=== PATIENT | male | born 1955 | race Caucasian/White ===

== ENCOUNTER → 2017-08-10 15:23 | Outpatient (CLI) | payer MEDICAID ==
[~2017-08-10 15:23] MED LIST: COZAAR100 MG PO; KEFLEX500 MG PO; Levaquin PO; OXYCODONE HCL5 MG PO; PREDNISONE20 MG PO; SINGULAIR10 MG PO; ZOFRAN ODT4 MG/UDTAB PO
[2017-10-05 16:08] VITALS: BMI 35.2
== END | disposition home or self-care (01) ==
LOC: D.MRI 15:23
DX: M54.12 Radiculopathy, cervical region (principal); M25.311 Other instability, right shoulder

== ENCOUNTER → 2017-08-13 08:47 | Outpatient (CLI) | payer MEDICAID ==
[2017-10-05 16:08] VITALS: BMI 35.2
== END | disposition home or self-care (01) ==
LOC: D.RAD 08:47
DX: M25.311 Other instability, right shoulder (principal); M54.12 Radiculopathy, cervical region

== ENCOUNTER → 2017-08-16 09:50 | Outpatient (CLI) | payer MEDICAID ==
[2017-10-05 16:08] VITALS: BMI 35.2
== END | disposition home or self-care (01) ==
LOC: D.LABREF 09:50
DX: M19.011 Primary osteoarthritis, right shoulder (principal); Z11.8 Encounter for screening for other infectious and parasitic diseases

== ENCOUNTER 2017-09-18 05:16 | Inpatient (IN) | payer MEDICAID ==
[2017-09-14 09:17] LABS: BASOPHILS 0.5 % (0-2); EOSINOPHILS 2.4 % (0-7); HEMATOCRIT 54.7 % (42.0-54.0); HEMOGLOBIN 18.6 g/dL (13.5-17.5); IMMATURE GRANULOCYTES 0.3 % (0-5); LYMPHOCYTES 33.2 % (15-50); MCH 33.3 pg (26.0-34.0); MCV 97.9 fL (80.0-100.0); MONOCYTES 9.9 % (2-11); NEUTROPHILS 53.7 % (40-80); PLATELET COUNT 232 10x3/uL (130-400); RBC 5.59 10x6/uL (4.20-6.10); RDW 13.1 % (11.5-14.5); WBC 11.7 10x3/uL (4.8-10.8)
[2017-09-14 09:36] LABS: APTT 28.6 SECONDS (22.8-39.4); INR 1.01 (0.85-1.17); PROTIME 12.9 SECONDS (11.6-15.0)
[2017-09-14 09:45] LABS: CALC OSMOLALITY 269 mosm/kg (275-300); CARBON DIOXIDE 23.5 mmol/L (21.0-32.0); CHLORIDE - SERUM 99 mmol/L (98-107); CREATININE - SERUM 0.9 mg/dL (0.6-1.3); GLUCOSE 104 mg/dL (74-106); POTASSIUM - SERUM 4.4 mmol/L (3.5-5.1); SODIUM 134 mmol/L (136-145); UREA NITROGEN 19 mg/dL (7-18); eGFR NON AFRICAN AMERICAN > 90 mL/min (90-120)
[2017-09-14 09:46] LABS: APPEARANCE CLEAR (CLEAR); BILIRUBIN NEGATIVE (NEGATIVE); COLOR YELLOW (YELLOW); GLUCOSE NEGATIVE (NEGATIVE); KETONE NEGATIVE (NEGATIVE); NITRITE NEGATIVE (NEGATIVE); PROTEIN NEGATIVE (NEGATIVE); RED CELLS - URINE OCC /hpf (0-5); SPECIFIC GRAVITY 1.015 (1.005-1.020); UROBILINOGEN NORMAL (NORMAL); WHITE CELLS - URINE 0-5 /hpf (0-5)
[2017-09-14 09:47] LABS: BACTERIA FEW /hpf (NONE SEEN); EPITHELIAL CELLS 0-5 /hpf (0-5); GRANULAR CAST 0-5 /lpf (NONE SEEN); HYALINE CAST OCC /lpf (NONE SEEN); MUCUS <1+ /lpf (NONE SEEN)
[~2017-09-18] VITALS: Ht 167.6 cm; Wt 95.5 kg
[2017-09-18] VITALS (11 sets, daily range): BP systolic 92–151; BP diastolic 61–96; Ht 167.6 cm; Wt 95.5 kg
--- NOTE | ~2017-09-18 | OP ---
PATIENT NAME: LANCE LOMBARDO MEDICAL RECORD: [id number] :51 LOCATION:D.MS [id number] ADMISSION DATE:09/18/17 SURGEON: OZZY DAMIAN, DATE OF OPERATION: 09/18/2017 PROCEDURE PERFORMED: Right reverse total shoulder arthroplasty. PREOPERATIVE DIAGNOSIS: Right shoulder rotator cuff arthropathy. POSTOPERATIVE DIAGNOSIS: Right shoulder rotator cuff arthropathy. INDICATIONS: Mr. Lombardo is a 61-year-old male that has complained of right shoulder pain, lack of motion, and strength for quite some time. He has had a couple of dislocations as well, but they always go back in. This has been going on for quite some time and he had x-rays and MRI, which indicated a severe rotator cuff arthropathy. The subscapularis had been completely torn off and retracted back over the glenohumeral joint, teres minor as well as the supraspinatus massive tear. He is a smoker. We had a conversation with him that I likely could not repair his rotator cuff due to the amount of retraction and he also had fatty infiltration in it and in order to get him motion and somewhat strength and use of that shoulder, he would need a reverse total shoulder. He was informed of the risks and benefits including dislocation, injury to the axillary nerve, blood loss and infection, and he consented to the procedure. DESCRIPTION OF PROCEDURE: The patient received a block in the preoperative area by anesthesia. He was taken to the operative suite, laid in supine position, given general anesthetic and intubated. The right shoulder was then prepped and draped in sterile fashion and the patient was given 900 mg of clindamycin preop. Once the shoulder was prepped and draped, timeout was performed, everyone was in agreement of correct side, site and patient. The incision then began in the deltopectoral interval down to the cephalic vein, which was taken medially. We then incised the clavipectoral fascia and the proximal 1 cm of the pec tendon was taken down as well to help with the exposure. Once the humeral head was exposed, the retractors were placed. Humeral head was cut using intramedullary guide in 30 degrees of retroversion. The humerus was then taken posterior to the glenoid. The glenoid was exposed and the labrum was taken off the glenoid. The centering pin was then put into place and reamers were used to clean off the glenoid in preparation for the implant. We did 30-mm screw and a superior and inferior locking screw on baseplate and then an inferior offset glenosphere in order to cover the entire glenoid. Once this was done, the glenoid was set. The humeral head was then exposed that had been cut and broached to a 6 and a trial was put in and conjoined tendon was seen to have good tension as well as the deltoid. The shoulder was very stable. The wound took it through range of motion. We then removed the trial and put the real implant in after irrigation and this implant was placed and thoroughly irrigated, put through range of motion, again seen to be very stable. The deltopectoral interval was loosely closed with 0 Vicryl in simple interrupted fashion and then the skin was closed with 2-0 Vicryl after the rest had been put in deep 2-0 Vicryl in an inverted interrupted to close the skin and then Prineo was placed on the skin. The patient was put in a sling and awakened and taken to recovery in stable condition. BLOOD LOSS: Approximately 100 mL. OPERATIVE REPORT [id number] LANCE LOMBARDO COMPLICATIONS: None. TRANSINT:[id number] Voice Confirmation ID: [id number] DOCUMENT ID: [id number] OZZY DAMIAN DO at 1348 CC: [id number] DICTATION DATE: 09/18/17 0951 COAT JOINER: 09/18/17 1235 [facility] [address] [place] [address]
[~2017-09-18 05:16] MED LIST changes: -KEFLEX500 MG PO; -Levaquin PO; -OXYCODONE HCL5 MG PO; -PREDNISONE20 MG PO; -SINGULAIR10 MG PO; -ZOFRAN ODT4 MG/UDTAB PO
[2017-09-19] VITALS: BP 106/68
[2017-09-19 04:00] VITALS: BP 123/69
[2017-09-19 06:02] LABS: HEMATOCRIT 38.5 % (42.0-54.0); HEMOGLOBIN 12.4 g/dL (13.5-17.5); MCH 31.8 pg (26.0-34.0); MCHC 32.2 g/dL (31.0-37.0); MCV 98.7 fL (80.0-100.0); RBC 3.9 10x6/uL (4.20-6.10); RDW 13.3 % (11.5-14.5); WBC 13.8 10x3/uL (4.8-10.8)
[2017-09-19 08:56] VITALS: BP 111/67
[2017-09-19 11:49] VITALS: BP 135/72
[2017-09-19] MEDS ORDERED: OXYCODONE HCL5 MG PO (15:15)
[2017-09-19] MEDS ORDERED: KEFLEX500 MG PO (15:16)
[2017-09-19] MEDS ORDERED: ZOFRAN ODT4 MG/UDTAB PO (15:16)
== END 2017-09-19 16:49 | disposition home or self-care (01) | DRG 483 ==
LOC: D.SDCHOLD 05:16 → D.MS 05:16 → D.SDCHOLD 07:30 → D.MS 10:19
PROVIDERS: Anesthesiology; Orthopaedic Surgery
PROC: 0RRJ00Z Replacement of Right Shoulder Joint with Reverse Ball and Socket Synthetic Substitute, Open Approach (ICD-10-PCS; principal; 2017-09-18 07:30)
DX: M75.101 Unspecified rotator cuff tear or rupture of right shoulder, not specified as traumatic (principal); M96.840 Postprocedural hematoma of a musculoskeletal structure following a musculoskeletal system procedure; I10 Essential (primary) hypertension; J44.9 Chronic obstructive pulmonary disease, unspecified; Y83.8 Other surgical procedures as the cause of abnormal reaction of the patient, or of later complication, without mention of misadventure at the time of the procedure

== ENCOUNTER 2017-09-23 10:35 | Emergency (ER) | payer MEDICAID ==
[2017-09-18 19:18] VITALS: BMI 33.9
[~2017-09-23 10:35] MED LIST changes: +KEFLEX500 MG PO; +OXYCODONE HCL5 MG PO; +ZOFRAN ODT4 MG/UDTAB PO
== END 2017-09-23 12:30 | disposition home or self-care (01) ==
LOC: D.ER 10:35
DX: L03.114 Cellulitis of left upper limb (principal); G47.00 Insomnia, unspecified; J44.9 Chronic obstructive pulmonary disease, unspecified; I10 Essential (primary) hypertension

== ENCOUNTER 2017-10-04 11:23 | Inpatient (IN) | payer MEDICAID ==
[~2017-10-04] VITALS: Ht 167.6 cm; Wt 98.9 kg
--- NOTE | ~2017-10-04 | EC ---
PATIENT:YESICA LOMBARDO DATE OF SERVICE: 10/04/17 SEX: M MEDICAL RECORD: [id number] DATE OF : 51 LOCATION:D.MS [facility] AGE OF PATIENT: 61 ADMISSION DATE: 10/04/17 REFERRING PHYSICIAN: INTERPRETING PHYSICIAN: NATANAEL REED MD ECHOCARDIOGRAM REPORT ECHO CHARGES 4 ECHO COMPLETE CLINICAL DIAGNOSIS: ASSESS LV FUN/ SOB HX OF HTN ECHOCARDIOGRAPHIC MEASUREMENTS (adult normal given) AC root (d.<3.7cm) 4.3 cm LV Septum d (<1.2 cm> 1.6 cm Valve Excursion 1.8 cm LV Septum (systole) 1.8 cm Left Atria (s.<4.0cm> 4.1 cm LVPW d(<1.2cm) 1.8 cm RV (d.<2.3cm) 5.1 cm LVPW (sytole) 2.1 cm LV diastole(<5.6CM) 5.5 cm MV E-F(>70mm/sec) cm LV systole 3.1 cm LVOT Diameter 2.0 cm MV exc.(>10mm) 1.4 cm Est.ejection fraction (50-75%) % Pericardial Effusion N DOPPLER: LVIT cm/sec A 86.0 cm/sec E 46.0 cm/sec LA cm/sec RVSP 20 mmHg LVOT 133 cm/sec AOP1/2T m/s Asc. Ao 164 cm/sec RVOT 113 cm/sec RA cm/sec PA 161 cm/sec AV Gradient Peak 10.73mmHg AV Mean 5.04 mmHg AV Area 2.7 cm MV Gradient Peak 4.67 mmHg MV Mean 2.03 mmHg MV Area cm COMMENTS: Event Decorator: 2 [place] Carding Utility Tender: 3 Dr. Doran TAPE# PACS DATE OF SERVICE: 10/06/2017 Adequate 2-D echo, color flow imaging, spectral Doppler, and M-Mode. LVH present. LV internal dimensions are normal. Wall motion is normal. EF is greater than or equal to 55%. Aortic valve sclerosis without stenosis on Doppler interrogation. Left atrium is at upper limits of normal to mildly dilated at 4.1 cm. Mitral valve shows no prolapse. Trace MR. Right-sided chamber is grossly normal. Trace TR. ECHOCARDIOGRAM REPORT [id number] YESICA LOMBARDO TRANSINT:[id number] Voice Confirmation ID: [id number] DOCUMENT ID: [id number] 10/11/2017 Edited to correct date of service, dmm. NATANAEL REED MD CC: [id number] DICTATION DATE: 10/07/17 1045 SPECIAL DELIVERY MAIL CARRIER: 10/07/17 1400 [facility] IN 10/07/17 [place] [address]
--- NOTE | ~2017-10-04 | OP ---
PATIENT NAME: YESICA LOMBARDO MEDICAL RECORD: [id number] :53 LOCATION:D.MS [id number] ADMISSION DATE:10/04/17 SURGEON: OZZY DAMIAN DO DATE OF OPERATION: 10/05/2017 PROCEDURES PERFORMED: Right shoulder hematoma evacuation with irrigation, debridement, and poly exchange of the reverse total shoulder. PREOPERATIVE DIAGNOSIS: Right shoulder postoperative hematoma. POSTOPERATIVE DIAGNOSIS: Right shoulder postoperative hematoma. SURGEON: Ozzy Damian DO ESTIMATED BLOOD LOSS: Approximately 150 mL. INDICATIONS: Mr. Lombardo is a 61-year-old male who underwent a right reverse total shoulder a couple of weeks ago had a large hematoma after the surgery, started to watch it and see if it would go down and it did actually decrease in size and then yesterday, it had begun to drain at the inferior incision. Due to the fact that it was draining and fearful for getting an infection in the shoulder and the fact it had not gone down a lot, he had seen a seismic prospecting observer helper at that time and was noticing a pneumonia, was admitted to hospital for that. Then, I checked on him and decided since he in the hospital to do an I&D of the shoulder and hematoma evacuation with poly exchange. I took cultures as well. He is agreeable to this procedure and then was consented for it. DESCRIPTION OF PROCEDURE: The patient was taken to the operative suite, laid in the supine position and given general anesthetic and put in a beach chair position after the LMA was placed. The right shoulder was prepped and draped in sterile fashion. Timeout was performed, it was agreed to correct side, site, and patient. The incision then commenced over the deltopectoral interval at the previous incision. Through the incision made, large hematoma was evacuated out just under the skin and then careful dissection was made down to the joint itself. Reverse total shoulder prosthesis looked pristine and there was absolutely no purulence at all in the wounds, only hematoma, which was all cleaned out and then the reverse was dislocated and the poly was swapped out for the same size that was in there and then was reduced. Good motion was seen and good stability of the shoulder was noted without poly in and then a more thorough irrigation was done with 3 liters total of irrigation and I then tried to close the deltopectoral interval with #1 Vicryl in a [id number] fashion and some of the sutures did not hold. Then, two vials of Mark were put in the wound and the skin was closed with 2-0 Monocryl. Cultures were taken prior to antibiotics being given. Antibiotics were given right after cultures after the wound was opened up, 600 of clindamycin. The skin was then closed with 2-0 Monocryl in inverted interrupted fashion and 4-0 running on the skin and then a drain was put in through the incision and Prevena was placed on the skin in order to put pressure on the wound to suction the hematoma out if would be there as well as a drain put in. The patient was then awakened and taken to the recovery in stable condition. COMPLICATIONS: None. OPERATIVE REPORT [id number] YESICA LOMBARDO TRANSINT:[id number] Voice Confirmation ID: [id number] DOCUMENT ID: [id number] OZZY DAMIAN DO at 1431 CC: [id number] DICTATION DATE: 10/05/171821 POLE INCISOR OPERATOR: 10/06/17 0553 ADM IN [facility] [address] [place] [address]
[2017-10-04 12:06] LABS: BASOPHILS 0.3 % (0-2); EOSINOPHILS 1.9 % (0-7); HEMATOCRIT 40.4 % (42.0-54.0); HEMOGLOBIN 13.3 g/dL (13.5-17.5); IMMATURE GRANULOCYTES 0.2 % (0-5); LYMPHOCYTES 24.3 % (15-50); MCHC 32.9 g/dL (31.0-37.0); MCV 97.3 fL (80.0-100.0); MEAN PLATELET VOLUME 9.2 fL (7.4-10.4); MONOCYTES 9.5 % (2-11); NEUTROPHILS 63.8 % (40-80); RBC 4.15 10x6/uL (4.20-6.10); RDW 13.2 % (11.5-14.5); WBC 10.8 10x3/uL (4.8-10.8)
[2017-10-04 12:08] LABS: PLATELET COUNT 363 10x3/uL (130-400)
[2017-10-04 12:18] LABS: INR 0.98 (0.85-1.17); PROTIME 12.6 SECONDS (11.6-15.0)
[2017-10-04 12:20] LABS: D-DIMER-QUANTITATIVE 3.14 ug/mLFEU (0.20-0.54)
[2017-10-04 12:25] LABS: ALBUMIN 3.5 g/dL (3.4-5.0); ALKALINE PHOSPHATASE 115 U/L (46-116); ALT (SGPT) 45 U/L (10-68); BILIRUBIN - TOTAL 0.64 mg/dL (0.2-1.3); CALC OSMOLALITY 273 mosm/kg (275-300); CALCIUM 9.3 mg/dL (8.5-10.1); CHLORIDE - SERUM 99 mmol/L (98-107); GLUCOSE 96 mg/dL (74-106); POTASSIUM - SERUM 4.1 mmol/L (3.5-5.1); SODIUM 136 mmol/L (136-145); UREA NITROGEN 17 mg/dL (7-18); eGFR NON AFRICAN AMERICAN 80 mL/min (90-120)
[2017-10-04 12:37] LABS: CKMB 1.3 U/L (0.0-3.6); CREATINE KINASE 86 UL (21-232); PRO BNP 66 pg/mL (0-125)
[2017-10-04 12:46] LABS: TROPONIN-I < 0.017 ng/mL (0.000-0.060)
[2017-10-04 20:00] VITALS: BP 121/68
[2017-10-04 23:46] VITALS: BMI 35.2
[2017-10-05] VITALS (14 sets, daily range): BP systolic 140–177; BP diastolic 51–103; Ht 167.6 cm; Wt 98.9 kg
[2017-10-05 05:32] LABS: BASOPHILS 0.4 % (0-2); EOSINOPHILS 2.6 % (0-7); HEMATOCRIT 42.5 % (42.0-54.0); HEMOGLOBIN 13.4 g/dL (13.5-17.5); IMMATURE GRANULOCYTES 0.2 % (0-5); LYMPHOCYTES 24.4 % (15-50); MCHC 31.5 g/dL (31.0-37.0); MCV 98.4 fL (80.0-100.0); MEAN PLATELET VOLUME 9.3 fL (7.4-10.4); MONOCYTES 10.3 % (2-11); NEUTROPHILS 62.1 % (40-80); PLATELET COUNT 363 10x3/uL (130-400); RBC 4.32 10x6/uL (4.20-6.10); RDW 13.4 % (11.5-14.5); WBC 9.4 10x3/uL (4.8-10.8)
[2017-10-05 05:51] LABS: ALBUMIN 3.6 g/dL (3.4-5.0); ANION GAP 15.6 mmol/L (8-16); BILIRUBIN - TOTAL 0.7 mg/dL (0.2-1.3); CALCIUM 9.2 mg/dL (8.5-10.1); CARBON DIOXIDE 28.2 mmol/L (21.0-32.0); CREATININE - SERUM 1.1 mg/dL (0.6-1.3); PROTEIN - SERUM 7.2 g/dL (6.4-8.2)
[2017-10-05 05:53] LABS: POTASSIUM - SERUM 4.8 mmol/L (3.5-5.1)
[2017-10-06] VITALS (7 sets, daily range): BP systolic 128–153; BP diastolic 73–91
[2017-10-06 06:35] LABS: HEMATOCRIT 37.5 % (42.0-54.0); LYMPHOCYTES 14.6 % (15-50); MCH 31.1 pg (26.0-34.0); MCV 97.2 fL (80.0-100.0); MEAN PLATELET VOLUME 8.8 fL (7.4-10.4); NEUTROPHILS 75.3 % (40-80); PLATELET COUNT 317 10x3/uL (130-400); RBC 3.86 10x6/uL (4.20-6.10); WBC 10.6 10x3/uL (4.8-10.8)
[2017-10-06 06:40] LABS: CALC OSMOLALITY 275 mosm/kg (275-300); CALCIUM 8.7 mg/dL (8.5-10.1); CARBON DIOXIDE 30.8 mmol/L (21.0-32.0); CHLORIDE - SERUM 100 mmol/L (98-107); CREATININE - SERUM 0.9 mg/dL (0.6-1.3); GLUCOSE 119 mg/dL (74-106); MAGNESIUM - SERUM 2.2 mg/dL (1.8-2.4); PHOSPHOROUS 4.2 mg/dL (2.5-4.9); POTASSIUM - SERUM 4.5 mmol/L (3.5-5.1); SODIUM 137 mmol/L (136-145); UREA NITROGEN 15 mg/dL (7-18); eGFR NON AFRICAN AMERICAN > 90 mL/min (90-120)
[2017-10-07 05:17] LABS: BASOPHILS 0.2 % (0-2); EOSINOPHILS 0.1 % (0-7); HEMATOCRIT 36.8 % (42.0-54.0); HEMOGLOBIN 11.5 g/dL (13.5-17.5); IMMATURE GRANULOCYTES 0.2 % (0-5); LYMPHOCYTES 10.3 % (15-50); MCH 30.8 pg (26.0-34.0); MCHC 31.3 g/dL (31.0-37.0); MCV 98.7 fL (80.0-100.0); MEAN PLATELET VOLUME 9.6 fL (7.4-10.4); MONOCYTES 2.4 % (2-11); NEUTROPHILS 86.8 % (40-80); PLATELET COUNT 316 10x3/uL (130-400); RBC 3.73 10x6/uL (4.20-6.10); RDW 13.5 % (11.5-14.5); WBC 10.6 10x3/uL (4.8-10.8)
[2017-10-07 05:29] LABS: CALC OSMOLALITY 282 mosm/kg (275-300); CALCIUM 9.1 mg/dL (8.5-10.1); CARBON DIOXIDE 29.7 mmol/L (21.0-32.0); CHLORIDE - SERUM 103 mmol/L (98-107); GLUCOSE 155 mg/dL (74-106); POTASSIUM - SERUM 4.8 mmol/L (3.5-5.1); SODIUM 140 mmol/L (136-145); UREA NITROGEN 16 mg/dL (7-18); eGFR NON AFRICAN AMERICAN 80 mL/min (90-120)
[2017-10-07 07:57] VITALS: BP 150/87
[2017-10-07 12:34] VITALS: BP 174/74
[2017-10-07] MEDS ORDERED: Levaquin PO (13:48)
[2017-10-07] MEDS ORDERED: SINGULAIR10 MG PO (13:49)
[2017-10-07] MEDS ORDERED: PREDNISONE20 MG PO (13:50)
[2017-10-07 14:09] LABS: IMMUNOGLOBULIN A 452 mg/dL (61-437); IMMUNOGLOBULIN G 836 mg/dL (700-1600)
[2017-10-11 21:08] LABS: IMMUNOGLOBULIN E 1517 IU/mL (0-100)
== END 2017-10-07 17:40 | disposition home or self-care (01) | DRG 981 ==
LOC: D.ER 11:23 → D.MS 17:48
PROVIDERS: Family Medicine; Internal Medicine Nephrology; Internal Medicine Pulmonary Disease
PROC: 0HCBXZZ Extirpation of Matter from Right Upper Arm Skin, External Approach (ICD-10-PCS; principal; 2017-10-04)
PROC: 0RWJ0JZ Revision of Synthetic Substitute in Right Shoulder Joint, Open Approach (ICD-10-PCS; 2017-10-04)
DX: J98.11 Atelectasis (principal); J96.21 Acute and chronic respiratory failure with hypoxia; T84.028A Dislocation of other internal joint prosthesis, initial encounter; F17.203 Nicotine dependence unspecified, with withdrawal; J44.1 Chronic obstructive pulmonary disease with (acute) exacerbation; J44.0 Chronic obstructive pulmonary disease with (acute) lower respiratory infection; M96.840 Postprocedural hematoma of a musculoskeletal structure following a musculoskeletal system procedure; D62 Acute posthemorrhagic anemia; J44.9 Chronic obstructive pulmonary disease, unspecified; I10 Essential (primary) hypertension; G47.00 Insomnia, unspecified; K21.9 Gastro-esophageal reflux disease without esophagitis; Y83.8 Other surgical procedures as the cause of abnormal reaction of the patient, or of later complication, without mention of misadventure at the time of the procedure; Z96.611 Presence of right artificial shoulder joint; K76.0 Fatty (change of) liver, not elsewhere classified; J98.6 Disorders of diaphragm

== ENCOUNTER → 2018-01-01 09:50 | Outpatient (CLI) | payer MEDICAID ==
[2017-10-05 16:08] VITALS: BMI 35.2
[~2018-01-01 09:50] MED LIST changes: +Levaquin PO; +PREDNISONE20 MG PO; +SINGULAIR10 MG PO
== END | disposition home or self-care (01) ==
LOC: D.RT 09:50
DX: J45.909 Unspecified asthma, uncomplicated (principal)

== ENCOUNTER → 2018-02-04 10:36 | Outpatient (CLI) | payer MEDICAID ==
[2017-10-05 16:08] VITALS: BMI 35.2
== END | disposition home or self-care (01) ==
LOC: D.CT 10:36
DX: R91.1 Solitary pulmonary nodule (principal); R93.8 Abnormal findings on diagnostic imaging of other specified body structures

== ENCOUNTER → 2018-06-14 14:34 | Outpatient (CLI) | payer MEDICAID ==
[2017-10-05 16:08] VITALS: BMI 35.2
== END | disposition home or self-care (01) ==
LOC: D.CT 14:34
DX: R91.8 Other nonspecific abnormal finding of lung field (principal)

== ENCOUNTER → 2019-03-27 15:26 | Outpatient (CLI) | payer MEDICARE, BC ==
[2017-10-05 16:08] VITALS: BMI 35.2
[~2019-03-27 15:26] MED LIST changes: +ALBUTEROL SULF8.5 GM INH; +COZAAR50 MG PO; +DURICEF500 MG PO; +FUROSEMIDE20 MG PO; +GABAPENTIN100 MG PO; +K-TAB10 MEQ PO; +LEXAPRO10 MG PO; +NUVIGIL250 MG PO; +PERCOCET 10-321 EAC1 PO; +PROVENTIL/2.5 MG/3 M INH; +SYMBICORT 16010.2 GM INH
== END | disposition home or self-care (01) ==
LOC: D.CT 15:26
PROVIDERS: ATTEND Internal Medicine Pulmonary Disease
DX: R91.8 Other nonspecific abnormal finding of lung field (principal)

== ENCOUNTER 2019-04-11 10:55 | Day surgery (SDC) | payer MEDICARE, BC ==
[2019-04-10 11:20] LABS: HEMATOCRIT 47.9 % (42.0-54.0); HEMOGLOBIN 16.3 g/dL (13.5-17.5); MCH 32.7 pg (26.0-34.0); MEAN PLATELET VOLUME 9.3 fL (7.4-10.4); RBC 4.99 10x6/uL (4.20-6.10); RDW 13.7 % (11.5-14.5); WBC 12.3 10x3/uL (4.8-10.8)
[~2019-04-11] VITALS: Ht 167.6 cm; Wt 99.8 kg
[~2019-04-11 10:55] MED LIST changes: -DURICEF500 MG PO; -PERCOCET 10-321 EAC1 PO
[2019-04-11 11:29] VITALS: BP 158/87; Ht 167.6 cm; Wt 99.8 kg
[2019-04-11] MEDS ORDERED: PERCOCET 10-321 EAC1 PO (17:34)
[2019-04-11] MEDS ORDERED: DURICEF500 MG PO (17:34)
--- NOTE | 2019-04-12 02:45 | OP ---
PATIENT NAME: YESICA LOMBARDO MEDICAL RECORD: [id number] :53 LOCATION:DRosendoOPS ADMISSION DATE: SURGEON: GE DAMIAN DO DATE OF OPERATION: 04/11/2019 PROCEDURE PERFORMED: Left endoscopic carpal tunnel release. PREOPERATIVE DIAGNOSIS: Carpal tunnel syndrome of the left wrist. POSTOPERATIVE DIAGNOSIS: Carpal tunnel syndrome of the left wrist. INDICATIONS: Mr. Lombardo is a 63-year-old male who has had left hand numbness for quite some time, tingling, and pain. He said it started to wake him up at night, when he goes to drive or he is on the phone, he said that his first 3 fingers and half of his fourth finger go numb. He started to deal with this pain. I told him we can get a nerve conduction study to evaluate how bad it was, get a positive carpal tunnel compression test too. I told him that he may have an aspect of cervical radiculopathy as well, but he wanted to forego the nerve test and have the procedure done. I informed him we could take the pain away probably but we may not be able to completely get the sensation back due to the fact that he did not have a nerve test to know how severe it was. He was okay with that and he knew the risks of infection, bleeding, damage to the median nerve, loss of function of the hand and signed the consent. SURGEON: Ge Damian DO DESCRIPTION OF PROCEDURE: The patient was taken to the operative suite, given TIVA. The left upper extremity was prepped and draped in sterile fashion. A timeout was performed and everyone was in agreement with the correct side, site, patient and procedure. He was given 2 grams Ancef preoperatively. The left upper extremity was then exsanguinated with an Esmarch and the tourniquet was inflated to 250 mmHg, was up for 10 minutes. Incision then began centered over the palmaris longus tendon and then blunt dissection with Ragnell was made down to the median nerve. The forearm fascia was released from distal to proximal at that point and then the carpal tunnel was entered under the transverse carpal ligament with the dilators. We then put the sheath in over the median nerve and the transverse carpal ligament was viewed with the scope. He was rasped and then probed to ensure nothing was in it. The blade was then brought in and transected the transverse carpal ligament in a retrograde fashion. The blade and scope and sheath were then removed and under loupe visualization, any fibers that were left were spread and with scissors and the Ragnell. The tourniquet was then let down and the site was injected with 6 mL of 0.25% Marcaine with epinephrine and the skin was closed with 5-0 Monocryl in a horizontal mattress fashion. Dermabond was placed on that and then Adaptic, 4 x 4s, Kerlix, and a Coban was lightly wrapped on the wrist and the hand. He was awakened and taken back to his room in stable condition. BLOOD LOSS: Minimal. COMPLICATIONS: None. TRANSINT:[id number] Voice Confirmation ID: [id number] DOCUMENT ID: [id number] OPERATIVE REPORT [id number] YESICA LOMBARDO MICHAEL D, DO at 0245 CC: [id number] DICTATION DATE: 04/11/19 1738 PIVOT END POLISHER: 04/11/19 4409 [facility] 04/11/19 [facility] [address] [place] [address]
== END 2019-04-11 18:22 | disposition home or self-care (01) ==
LOC: D.OPS 10:55 → D.PAN 14:30 → D.OPS 18:22
PROVIDERS: Anesthesiology; ATTEND Orthopaedic Surgery
DX: G56.02 Carpal tunnel syndrome, left upper limb (principal)

== ENCOUNTER → 2019-04-28 15:22 | Outpatient (CLI) | payer MEDICARE, BC ==
[2019-04-11 11:29] VITALS: BMI 35.6
[~2019-04-28 15:22] MED LIST changes: +DURICEF500 MG PO; +PERCOCET 10-321 EAC1 PO
== END | disposition home or self-care (01) ==
LOC: D.MRI 15:22
PROVIDERS: ATTEND Orthopaedic Surgery
DX: M54.5 Low back pain (principal)

== ENCOUNTER → 2019-05-14 08:16 | Outpatient (CLI) | payer MEDICARE, BC ==
[2019-04-11 11:29] VITALS: BMI 35.6
--- NOTE | ~2019-05-14 | HEMODYNAMI ---
PATIENT:YESICA LOMBARDO MEDICAL RECORD: [id number] : 51 LOCATION:D. ADMISSION DATE: 05/14/19 Generatedon:05/14/20199:36 Patient name: YESICA LOMBARDO Patient #: [id number] SSN: DO B: 1955 Date of study: 05/14/2019 Page: Of Hemodynamic Procedure Report Patient Data Patient Demographics First Name: YESICA Gender: Male Last Name: GRUPO : 1955 Middle Initial: R Age: 63 year(s) Patient #: [id number] Race: Unknown Additional ID: [id number] Contact details [address]: [address] [place] [address] State: [place] City: [place] Zip code: [address] Past Medical History Allergies: No known allergies Admission Admission Data Admission Date: 05/14/2019 Admission Time: 8:16 Procedure Procedure Types Cath Procedure Peripheral Cath Diagnostic Procedure Miscellaneous Epidural Steroid Injection Procedure Description Procedure Date Procedure Date: 05/14/2019 Procedure Start Time: 9:23 Procedure Staff Name Function Cyrus Jim MD Performing Physician Alton Loyola RT Monitor Patricia Horner RN Nurse Michelle Rios RN Nurse Procedure Data Cath Procedure Fluoroscopy Diagnostic fluoroscopy Total fluoroscopy Time: 1.2 time: 1.2 min min Diagnostic fluoroscopy Total fluoroscopy dose: 59 dose: 59 mGy mGy Hemodynamics Rest Pre Cath Intra NCS Post Cath Procedure Log Time Note 9:13:31 Alton Loyola RT (R) (CV) sent for patient. Start room use. 9:13:42 Time tracking: Regular hours (M-F 7:00 - 5:00) 9:13:48 Patient received from Outpatients to IR Alert and oriented. Tansferred to table in Prone position. 9:13:50 Warm blankets applied, and melissa hugger turned on for patient comfort. 9:13:50 Correct patient and procedure confirmed by team. 9:13:59 Full Disclosure recording started 9:14:01 9:14:02 Pre-procedure instructions explained to patient. 9:14:02 Pre-op teaching completed and patient verbalized understanding. 9:14:12 Patient allergic to No known allergies 9:14:16 Is patient on blood thinner?No 9:22:37 Lumbar area was prepped with betadine and draped in sterile fashion 9::39 Physician arrived 9:22:40 --------ALL STOP TIME OUT------ 9::41 Final Timeout: patient, procedure, and site verified with staff and physician. All members of the team are in agreement. 9:22:45 Lumbar site verified by team. 9:22:52 Sedation plan: Local Anesthetic Medication:Lidocaine 9:23:01 Procedure started. 9:23:06 Local anesthetic to Lumbar area with Lidocaine 1% by Cyrus Jim MD.INITIAL ACCESS ONLY 9:34:58 KIT EPIDURAL CATHETERIZATION opened to sterile field. 9:35:12 Procedure ended.(Physican Out) 9:35:26 Fluoroscopy time 01.20 minutes. 9:35:31 Fluoroscopy dose: 59 mGy 9:35:31 Flurop Dose total: 59 9:35:48 BANDAIDE APPLIED SITE STABLE PT SENT HOME Device Usage Item Name Manufacture Quantity Catalog Hospital Part Current [facility] l Lot# / Number Charge Number Stock Stock Serial# Code KIT EPIDURAL Teleflex 1 [id number] CATHETERIZATION Signature Audit [place] Stage Time Signature Unsigned Intra-Procedure 05/14/2019 Alton 9:36:09 AM Milla RT (R) (CV) Signatures Monitor : Alton Signature : Milla RT Date : Time : [facility] [address] [place] [address]
== END | disposition home or self-care (01) ==
LOC: D.SP 05-13 09:00 → D.RAD 05-13 09:00 → D.SP 08:16 → D.RAD 09:00
PROVIDERS: ATTEND Orthopaedic Surgery
DX: M51.27 Other intervertebral disc displacement, lumbosacral region (principal); Z01.812 Encounter for preprocedural laboratory examination

== ENCOUNTER → 2019-08-18 10:26 | Outpatient (CLI) | payer MEDICARE, BC ==
[2019-04-11 11:29] VITALS: BMI 35.6
== END | disposition home or self-care (01) ==
LOC: D.CT 10:26
PROVIDERS: ATTEND Internal Medicine Pulmonary Disease
DX: R91.8 Other nonspecific abnormal finding of lung field (principal)

== ENCOUNTER → 2019-08-20 14:20 | Outpatient (CLI) | payer MEDICARE, BC ==
[2019-04-11 11:29] VITALS: BMI 35.6
[2019-08-21 14:10] LABS: ACID FAST SMEAR Negative (()); AFB SPECIMEN PROCESSING Concentration (())
[2019-08-22 10:10] LABS: FUNGUS STAIN Final report (())
[2019-08-25 13:09] LABS: FUNGUS MYCOLOGY CULTURE Preliminary report (())
== END | disposition home or self-care (01) ==
LOC: D.LABREF 14:20
PROVIDERS: ATTEND Internal Medicine Pulmonary Disease
DX: J98.11 Atelectasis (principal)

== ENCOUNTER → 2020-02-06 12:23 | Outpatient (CLI) | payer MEDICARE, BC ==
[2019-04-11 11:29] VITALS: BMI 35.6
== END | disposition home or self-care (01) ==
LOC: D.CT 01-19 09:30
PROVIDERS: ATTEND Internal Medicine Pulmonary Disease
DX: R91.8 Other nonspecific abnormal finding of lung field (principal)

== ENCOUNTER 2020-04-10 20:22 | Inpatient (IN) | payer MEDICARE, BC ==
[~2020-04-10] VITALS: Ht 167.6 cm; Wt 106.2 kg
[2020-04-10 20:36] VITALS: BP 135/64
[2020-04-10 21:00] VITALS: BP 137/60
[2020-04-10 21:15] LABS: BASOPHILS 0.4 % (0-2); EOSINOPHILS 0.1 % (0-7); HEMATOCRIT 51.9 % (42.0-54.0); HEMOGLOBIN 16.8 g/dL (13.5-17.5); IMMATURE GRANULOCYTES 0.5 % (0-5); LYMPHOCYTES 12.9 % (15-50); MCH 32.1 pg (26.0-34.0); MCHC 32.4 g/dL (31.0-37.0); MCV 99.2 fL (80.0-100.0); MEAN PLATELET VOLUME 9.6 fL (7.4-10.4); MONOCYTES 9.6 % (2-11); NEUTROPHILS 76.5 % (40-80); PLATELET COUNT 213 10x3/uL (130-400); RBC 5.23 10x6/uL (4.20-6.10); RDW 13.5 % (11.5-14.5); WBC 16.8 10x3/uL (4.8-10.8)
[2020-04-10 21:19] LABS: CALC OSMOLALITY 268 mosm/kg (275-300); CALCIUM 8.7 mg/dL (8.5-10.1); CARBON DIOXIDE 29.1 mmol/L (21.0-32.0); CHLORIDE - SERUM 94 mmol/L (98-107); CREATININE - SERUM 1.3 mg/dL (0.6-1.3); GLUCOSE 122 mg/dL (74-106); POTASSIUM - SERUM 4.3 mmol/L (3.5-5.1); SODIUM 132 mmol/L (136-145); UREA NITROGEN 22 mg/dL (7-18); eGFR NON AFRICAN AMERICAN 59 mL/min (90-120)
[2020-04-10 21:20] LABS: APTT 26.9 SECONDS (22.8-39.4); PROTIME 13.1 SECONDS (11.6-15.0)
[2020-04-10 21:21] LABS: D-DIMER-QUANTITATIVE 0.45 ug/mLFEU (0.20-0.54)
[2020-04-10 21:33] LABS: ALBUMIN 3.6 g/dL (3.4-5.0); ALKALINE PHOSPHATASE 117 U/L (30-120); ALT (SGPT) 124 U/L (10-68); BILIRUBIN - TOTAL 0.46 mg/dL (0.2-1.3); C-REACTIVE PROTEIN 9.8 mg/dL (0.0-0.9); LIPASE 136 U/L (73-393); MAGNESIUM - SERUM 1.5 mg/dL (1.8-2.4); PRO BNP 194 pg/mL (0-125); PROTEIN - SERUM 8.2 g/dL (6.4-8.2)
[2020-04-10 21:37] LABS: TROPONIN-I < 0.017 ng/mL (0.000-0.060)
[2020-04-10 22:00] VITALS: BP 122/70
[2020-04-10 23:00] VITALS: BP 114/62
[2020-04-11] VITALS (13 sets, daily range): BP systolic 99–143; BP diastolic 62–91; Ht 167.6 cm; Wt 106.2 kg
--- NOTE | 2020-04-11 01:22 | NUR ---
NS BOLUS 2000 ML COMPLETE
[2020-04-11 06:30] LABS: BASOPHILS 0.3 % (0-2); EOSINOPHILS 0 % (0-7); HEMATOCRIT 46.5 % (42.0-54.0); HEMOGLOBIN 14.8 g/dL (13.5-17.5); IMMATURE GRANULOCYTES 0.3 % (0-5); LYMPHOCYTES 14.5 % (15-50); MCH 31.8 pg (26.0-34.0); MCHC 31.8 g/dL (31.0-37.0); MEAN PLATELET VOLUME 9.8 fL (7.4-10.4); MONOCYTES 3.4 % (2-11); NEUTROPHILS 81.5 % (40-80); PLATELET COUNT 193 10x3/uL (130-400); RBC 4.65 10x6/uL (4.20-6.10); RDW 13.9 % (11.5-14.5); WBC 15.5 10x3/uL (4.8-10.8)
--- NOTE | 2020-04-11 07:10 | NUR ---
REPORT RECIEVED FROM MOTOR WINDER AND PATIENT CARE ASSUMED. PATIENT LAYING IN BED ON RT SIDE WITH EYES CLOSED AND BRETHING EVENLY. PATIENT AROUSES TO VOICE. PATIENT DENIES ANY NEEDS OR PAIN. IV TO LFA INFUSING NS AT 50 ML/HR. PATIENT STATES HE DOES NOT WANT TO EAT BREAKFAST AND WANTS TO SLEEP. NC 02 AT 3L 02 SAT 92%, WILL CONTINUE WITH PLAN OF CARE. SR UPX 2 BED IN LOW POSITION AND CALL LIGHT IN REACH.
[2020-04-11 07:12] LABS: ALBUMIN 2.9 g/dL (3.4-5.0); ALKALINE PHOSPHATASE 88 U/L (30-120); ALT (SGPT) 93 U/L (10-68); CALC OSMOLALITY 276 mosm/kg (275-300); CALCIUM 7.9 mg/dL (8.5-10.1); CARBON DIOXIDE 30.6 mmol/L (21.0-32.0); CHLORIDE - SERUM 101 mmol/L (98-107); POTASSIUM - SERUM 4.6 mmol/L (3.5-5.1); PRO BNP 399 pg/mL (0-125); PROTEIN - SERUM 7.1 g/dL (6.4-8.2); SODIUM 135 mmol/L (136-145); TROPONIN-I < 0.017 ng/mL (0.000-0.060); UREA NITROGEN 22 mg/dL (7-18); eGFR NON AFRICAN AMERICAN 79 mL/min (90-120)
[2020-04-11 07:14] LABS: GLUCOSE 173 mg/dL (74-106)
--- NOTE | 2020-04-11 07:20 | NUR ---
PATIENT CALLED, PASSWORD PROVIDED, UPDATE GIVEN.
[2020-04-11] MEDS ORDERED: NUVIGIL250 MG PO (07:36)
[2020-04-11] MEDS ORDERED: PROZAC20 MG PO (07:37)
[2020-04-11] MEDS ORDERED: SINGULAIR10 MG PO (07:38)
--- NOTE | 2020-04-11 10:50 | NUR ---
PATIENT WALKING AROUND ROOM . CONTINUES TO PULL AT CARDIAC LEADS AND GETTING TANGLED IN IV LINE. ENCOURAGED PATIENT TO REMAIN IN BED UE TO PATIENT NEEDS TO BE MONITORED AND NEEDS IV FLUIDS. PATIENT STATED THAT HE WOULD TRY.
--- NOTE | 2020-04-11 13:29 | NUR ---
DR COLINDRES ON UNIT. STATES THAT PATIENT COULD BE TRANSFERRED TO FLOOR ANYTIME PENDING CARDIOLOGY PERMISSSION.
--- NOTE | 2020-04-11 13:31 | NUR ---
DR FUCHS ON UNIT.
--- NOTE | 2020-04-11 13:33 | NUR ---
CALLED. UPDATED ON STATUS. COVID RESULT NOT AVAILBLE YET PER LAB. DR COLINDRES ON UNIT.
--- NOTE | 2020-04-11 15:00 | NUR ---
REPORTED TO PATIENT COVID(-). INFORMED PATIEJNT BEING TRANSFERRED TO MED SURG. PATIENT STATES THAT HE IS NOT AND THAT HE IS GOING HOME. SPENT SEVERAL MINUTES EDUCATING PATIENT REGARDING RISKS AND AMA INSURANCE WILL NOT PAY. PATIENT STATES"IDONT GIVE A DAMN LET ME SIGN THAT PAPER. SHAMEKA ALREADY CALLED MY ." CONTACTED DR FUCHS AND CHRISTINA. PATIENT SIGHNED AMA FORM. IV DCD WITHOUT DIFFICULTY WITH ENTIRE CATHETER INTACT. PRESSURE BANDAGE APPLIED. PATIENT TO ER DCD VIA WC TO PRIVATE VEHICLE DRIVEN BY .
== END 2020-04-11 15:04 | disposition left against medical advice (07) | DRG 871 ==
LOC: D.ER 20:22 → D.M2 23:14 → D.ICU 04-11 00:47
PROVIDERS: Family Medicine; ADMIT Family Medicine; ATTEND Family Medicine
DX: A41.9 Sepsis, unspecified organism (principal); J96.21 Acute and chronic respiratory failure with hypoxia; I50.32 Chronic diastolic (congestive) heart failure; F17.203 Nicotine dependence unspecified, with withdrawal; J44.1 Chronic obstructive pulmonary disease with (acute) exacerbation; I11.0 Hypertensive heart disease with heart failure; G47.33 Obstructive sleep apnea (adult) (pediatric); K76.0 Fatty (change of) liver, not elsewhere classified; F32.9 Major depressive disorder, single episode, unspecified; E66.9 Obesity, unspecified; E88.01 Alpha-1-antitrypsin deficiency

== ENCOUNTER 2021-02-25 10:36 | Day surgery (SDC) | payer MEDICARE, BC ==
[~2021-02-25] VITALS: Ht 167.6 cm; Wt 105.5 kg
[~2021-02-25 10:36] MED LIST changes: +PROZAC20 MG PO
[2021-02-25 11:10] LABS: BASOPHILS 1.1 % (0-2); EOSINOPHILS 1.1 % (0-7); HEMATOCRIT 53.2 % (42.0-54.0); LYMPHOCYTES 21.9 % (15-50); MCH 32.6 pg (26.0-34.0); MCHC 33.8 g/dL (31.0-37.0); MCV 96.5 fL (80.0-100.0); MEAN PLATELET VOLUME 7.7 fL (7.4-10.4); MONOCYTES 7.3 % (2-11); NEUTROPHILS 68.6 % (40-80); RBC 5.52 10x6/uL (4.20-6.10); RDW 13.6 % (11.5-14.5); WBC 14.6 10x3/uL (4.8-10.8)
[2021-02-25 11:19] LABS: ANION GAP 16.7 mmol/L (8-16); CALCIUM 9.2 mg/dL (8.5-10.1); CARBON DIOXIDE 27.5 mmol/L (21.0-32.0); CREATININE - SERUM 1.3 mg/dL (0.6-1.3); POTASSIUM - SERUM 4.2 mmol/L (3.5-5.1)
[2021-02-25 11:25] LABS: PLATELET COUNT 327 10x3/uL (130-400)
[2021-02-25 12:27] VITALS: BP 110/68; Ht 167.6 cm; Wt 105.5 kg
--- NOTE | 2021-02-25 16:09 | NUR ---
PATIENT TO PHASE 11 RECOVERY AT 1525 AWAKE, ALERT W IV INFUSING. WATER PROVIDED TO PATIENT. PATIENT PLACED ON OXYGEN AT 2 L/M TO MAINTAIN SAT 90 OR ABOVE. 1555 PATIENT REMAINS STABLE. DISCHARGE INSTRUCTIONS GIVEN AND REVIEWED, PATIENT VERBALIZES UNDERSTANDING. IV REMOVED W CATH INTACT 1600 DISCHARGED VIA
--- NOTE | 2021-02-26 09:09 | OP ---
PATIENT NAME: YESICA LOMBARDO MEDICAL RECORD: [id number] :51 LOCATION:LEANN ADMISSION DATE: SURGEON: WEST RON MD DATE OF OPERATION: 02/25/2021 PROCEDURE: Colonoscopy. PREOPERATIVE DIAGNOSIS: This is a 65-year-old gentleman who I did a colonoscopy in June 2020. At that time, he had multiple colon polyps along with a fair prep. Therefore, this is a repeat colonoscopy for further evaluation of polyps. DESCRIPTION OF PROCEDURE: The patient was made comfortable in the left lateral position. Propofol was administered by anesthesia. The colonoscope was inserted through the rectum and advanced to the cecum, identified by the ileocecal valve and the appendiceal orifice. The quality of the prep was good. There were no immediate complications. There were a few sigmoid diverticula seen in the sigmoid colon. There were two descending colon polyps removed with hot biopsy forceps and hot snare polypectomy respectively. There were 4 sigmoid polyps, removed with a combination of cold biopsy forceps, hot snare polypectomy and hot biopsy forceps. There was also a small rectal polyp removed with cold biopsy forceps. The patient tolerated the procedure well. There were no immediate complications. FINAL DIAGNOSES: Multiple polyps as outlined above. Diverticula. Internal hemorrhoids. PLAN: Advance diet. Check histology results. I do recommend a repeat colonoscopy in 1 year given this patient's large number of multiple polyps. TRANSINT:[id number] Voice Confirmation ID: [id number] DOCUMENT ID: [id number] WEST RON MD at 0909 CC: [id number] DICTATION DATE: 02/25/21 1514 YOKE SETTER: 02/25/21 1628 [facility] 02/25/21 [facility] [address] [place] [id number]
== END 2021-02-25 16:00 | disposition home or self-care (01) ==
LOC: D.OPS 10:36
PROVIDERS: Anesthesiology; ATTEND Internal Medicine Gastroenterology
DX: K63.5 Polyp of colon (principal); Z86.010 Personal history of colon polyps; K57.30 Diverticulosis of large intestine without perforation or abscess without bleeding; K64.8 Other hemorrhoids; I10 Essential (primary) hypertension